=== PATIENT | male | born 1965 | race African-American/Black ===

== ENCOUNTER 2018-06-29 15:16 | Emergency (ER) | payer MEDICAID ==
[~2018-06-29] VITALS: Ht 175.3 cm; Wt 80.0 kg
[2018-06-29] MEDS ORDERED: IBUPROFEN 600MG TABLET PO ONE (16:15)
[2018-06-29 16:30] VITALS: BP 120/82
== END 2018-06-29 17:30 | disposition home or self-care (01) ==
LOC: ER 16:30
DX: M54.5 Low back pain (principal); M54.2 Cervicalgia; M79.602 Pain in left arm; M79.601 Pain in right arm; V43.52XA Car driver injured in collision with other type car in traffic accident, initial encounter; Y93.89 Activity, other specified; Y92.410 Unspecified street and highway as the place of occurrence of the external cause
CPT/HCPCS: 72100; 99283